=== PATIENT | female | born 1955 | race Caucasian/White ===

== ENCOUNTER 2023-08-25 11:34 | Inpatient (IN) ==
[2023-08-25 12:42] LABS: Urine Appearance Clear; Urine Bilirubin Negative (Negative); Urine Blood Negative (Negative); Urine Color Colorless; Urine Glucose Negative (Negative); Urine Ketones Negative (Negative); Urine Nitrite Negative (Negative); Urine Protein Negative (Negative); Urine Specific Gravity 1.003 (1.002-1.030); Urine Urobilinogen Negative (Negative); Urine pH 6.5 (5.0-8.0)
[2023-08-25 12:45] LABS: Urine Bacteria 1+ /HPF (Absent); Urine Red Blood Cell 1+(3-5/hpf) /HPF (0-Trace); Urine Squamous Epithelial Cell Present /HPF (Absent); Urine White Blood Cell Trace(0-5/hpf) /HPF (0-Trace)
[2023-08-25 12:49] LABS: ABS Lymphocytes 1.6 10^3/uL (1.0-4.8); ABS Monocytes 0.3 10^3/uL (0.0-0.9); ABS Neutrophils 4.6 10^3/uL (1.5-7.6); Eosinophil % 0.6 %; Hematocrit 40.2 % (35-45); Hemoglobin 13.6 g/dL (11.5-14.3); Lymphocyte % 24.1 %; Mean Corpuscular Hemoglobin 33.6 pg (27-33); Mean Corpuscular Hgb Conc 33.9 g/dL (31-36); Mean Platelet Volume 7.2 fL (7.5-11.2); Nucleated Red Blood Cells % 0.1 %/100WBC (0.0-0.8); Platelet Count 374 10^3/uL (150-450); Red Blood Count 4.06 10^6/uL (3.63-4.92); Red Cell Distribution Width 13.4 % (12-17); White Blood Count 6.6 10^3/uL (3.8-11.8)
[2023-08-25] MEDS: Lactated Ringers 1000 ml BAG 1,000 ML IV ONE (13:02)
[2023-08-25] MEDS: Morphine 4 MG/ML VIAL (1 ml) IV ONE (13:03)
[2023-08-25 13:27] LABS: Albumin 4.6 g/dL (3.2-5.2); Albumin/Globulin Ratio 1.6 (1-3); C Reactive Protein 34.5 mg/L (<8.01); Calcium 9.6 mg/dL (8.6-10.3); Creatinine, Serum 0.67 mg/dL (0.51-0.95); Globulin 2.9 g/dL (2-4); Potassium 3.9 mmol/L (3.5-5.0); Total Bilirubin 0.4 mg/dL (0.2-1.0); Total Protein 7.5 g/dL (6.4-8.9); eGFR CKD-EPI 96.3 (>60)
[2023-08-25] MEDS: Iohexol 300 (CONTRAST) 10 ML SDV IV ONE (13:54)
[2023-08-25] MEDS ORDERED: Enoxaparin 60 MG/0.6 ML SYR SUBCUT ONE (15:46)
[2023-08-25] MEDS ORDERED: oxyCODONE/Acetamin 5/325 mg TAB PO PRN (17:14)
[2023-08-25] MEDS ORDERED: Enoxaparin 60 MG/0.6 ML SYR SUBCUT SCH (19:00)
[2023-08-25] MEDS: Enoxaparin 80 MG/0.8 ML SYR SUBCUT ONE (19:48)
[2023-08-25] MEDS: Sulfur Hexaflouride MICROSPHR 25 MG VIAL IV ONE (19:53)
[2023-08-25] MEDS: Acetaminophen IV 1 GM/100ML 1,000 MG/100 ML BAG IV PRN (20:11)
[2023-08-25] MEDS: Lactated Ringers 1000 ml BAG 1,000 ML IV SCH (21:14)
[2023-08-26] MEDS: Calcium Carb (TUMS) 500 mg CHEW TAB PO PRN (00:58)
[2023-08-26 07:18] LABS: ABS Lymphocytes 1.5 10^3/uL (1.0-4.8); ABS Monocytes 0.3 10^3/uL (0.0-0.9); ABS Neutrophils 3.1 10^3/uL (1.5-7.6); Eosinophil % 0.8 %; Hematocrit 35.3 % (35-45); Hemoglobin 12.2 g/dL (11.5-14.3); Lymphocyte % 30.8 %; Mean Corpuscular Hemoglobin 34.1 pg (27-33); Mean Corpuscular Hgb Conc 34.5 g/dL (31-36); Mean Platelet Volume 7.4 fL (7.5-11.2); Nucleated Red Blood Cells % 0.1 %/100WBC (0.0-0.8); Platelet Count 327 10^3/uL (150-450); Red Blood Count 3.57 10^6/uL (3.63-4.92); Red Cell Distribution Width 13.3 % (12-17); White Blood Count 4.9 10^3/uL (3.8-11.8)
[2023-08-26 07:38] LABS: Albumin 3.8 g/dL (3.2-5.2); Albumin/Globulin Ratio 1.7 (1-3); Calcium 8.9 mg/dL (8.6-10.3); Creatinine, Serum 0.64 mg/dL (0.51-0.95); Globulin 2.3 g/dL (2-4); Potassium 3.8 mmol/L (3.5-5.0); Total Bilirubin 0.5 mg/dL (0.2-1.0); Total Protein 6.1 g/dL (6.4-8.9); eGFR CKD-EPI 97.4 (>60)
[2023-08-26] MEDS ORDERED: Sulfur Hexaflouride MICROSPHR 25 MG VIAL IV ONE (08:00)
[2023-08-26] MEDS: Calcium Carb (TUMS) 500 mg CHEW TAB PO SCH (08:56)
[2023-08-26] MEDS: Enoxaparin 80 MG/0.8 ML SYR SUBCUT SCH (09:04)
[2023-08-26] MEDS: Pantoprazole VIAL 40 MG VIAL IV ONE (13:07)
[2023-08-26 14:07] VITALS: BP 107/86
[2023-08-28 13:41] LABS: Coagulation Factor V Assay 100 % (70 - 165)
[2023-08-28 15:19] LABS: DRVVT Screen Ratio 0.86 ratio (<1.20); LAC APTT 25 sec (25 - 37); LAC INR 1.1 (0.9-1.1); Prothrombin Time(LAC) 12.1 sec (9.4 - 12.5)
[2023-08-28 15:51] LABS: Protein S Activity, P 100 % (65-150)
[2023-08-28 16:29] LABS: Protein C Activity 106 % (70 - 150)
[2023-08-28 21:31] LABS: Phospholipid Ab IgG < 9.4 GPL; Phospholipid Ab IgM, S < 9.4 MPL
[2023-08-29 17:29] LABS: Beta 2 Glycoprotein IgG <9.4 SGU
[2023-08-30 04:05] LABS: Vitamin B2 Level 5 mcg/L (1-19)
[2023-08-30 11:51] LABS: Factor V Leiden Mutation Negative (Negative)
== END 2023-08-26 15:16 | disposition home or self-care (01) | DRG 816 ==
LOC: ED 11:34 → EDHOLD 16:19 → MEDTELE 21:06
PROVIDERS: ADMIT Internal Medicine; ATTEND Internal Medicine